=== PATIENT | female | born 1970 | race Two or more races ===

== ENCOUNTER 2019-10-10 16:16 | Inpatient (IN) | payer MEDICARE, OTHER ==
[~2019-10-10] VITALS: Ht 152.4 cm; Wt 76.2 kg
[2019-10-10] MEDS ORDERED: HALOPERIDOL LACTATE 5 MG/1 ML VIAL IM ONE (16:30)
[2019-10-10] MEDS ORDERED: LORAZEPAM 2 MG/1 ML VIAL IM ONE (16:30)
[2019-10-10] MEDS ORDERED: diphenhydrAMINE 50 MG/1 ML VIAL IM ONE (16:30)
[2019-10-10] MEDS ORDERED: LORAZEPAM 2 MG/1 ML VIAL ONE (16:33)
[2019-10-10] MEDS ORDERED: HALOPERIDOL LACTATE 5 MG/1 ML VIAL ONE (16:34)
[2019-10-10] MEDS ORDERED: diphenhydrAMINE 50 MG/1 ML VIAL ONE (16:34)
[2019-10-10 16:39] LABS: BASOPHILS # (AUTO) 0.1 K/uL (0.0-8.0); BASOPHILS % (AUTO) 1.1 % (0.0-2.0); EOSINOPHILS # (AUTO) 0.3 K/uL (0.0-0.7); EOSINOPHILS % (AUTO) 3.2 % (0.0-7.0); HEMATOCRIT 38.9 % (31.2-41.9); HEMOGLOBIN 12.7 g/dL (10.9-14.3); LYMPHOCYTES # (AUTO) 2.2 K/uL (20.0-40.0); LYMPHOCYTES % (AUTO) 27.1 % (20.5-51.5); MEAN CORPUSCULAR HGB CONC 33 g/dL (32.3-35.6); MEAN CORPUSCULAR VOLUME 85.8 fL (75.5-95.3); MONOCYTES # (AUTO) 0.9 K/uL (2.0-10.0); MONOCYTES % (AUTO) 10.7 % (0.0-11.0); NEUTROPHILS # (AUTO) 4.6 K/uL (1.8-8.9); NEUTROPHILS % (AUTO) 57.9 % (38.5-71.5); PLATELET COUNT (AUTO) 425 K/uL (179-408); RED BLOOD CELL COUNT(AUTO) 4.54 MIL/uL (3.63-4.92)
[2019-10-10] MEDS ORDERED: FLEXERIL (16:47)
[2019-10-10] MEDS ORDERED: AMOXICILLIN (16:47)
[2019-10-10] MEDS ORDERED: SERT50TA14 (16:47)
[2019-10-10 16:48] LABS: ACETAMINOPHEN < 2.0 ug/mL (10-30); ALANINE AMINOTRANSFERASE 23 U/L (14-59); ALKALINE PHOSPHATASE 126 U/L (50-136); ASPARTATE AMINOTRANSFERASE 23 U/L (15-37); BILIRUBIN,DIRECT 0.2 mg/dL (0.0-0.2); BILIRUBIN,TOTAL 0.7 mg/dL (0.2-1.0); CARBON DIOXIDE 24 mmol/L (21-32); CHLORIDE 101 mmol/L (98-107); CREATININE 0.9 mg/dL (0.6-1.3); GLUCOSE 154 mg/dL (74-106); POTASSIUM 3.3 mmol/L (3.5-5.1); TOTAL PROTEIN, SERUM 7.5 g/dL (6.4-8.2); UREA NITROGEN, BLOOD 16 mg/dL (7-18)
[2019-10-10 17:03] LABS: ETHANOL < 3 MG/DL (0-0)
--- NOTE | 2019-10-10 17:45 | NUR ---
Patient is resting comfortably on gurney with eyes closed, 1:1 sitter maintained.
[2019-10-10 17:50] LABS: *BILIRUBIN,URIN 1+ (NEGATIVE); *CLARITY,URINE SLIGHTLY CLOUDY (CLEAR); *COLOR,URINE YELLOW (YELLOW); *KETONES,URINE NEGATIVE (NEGATIVE); *UROBILINOGEN,URINE 0.2 E.U./dl (NORMAL); LEUKOCYTE ESTERASE ,URINE NEGATIVE (NEGATIVE); NITRITE, URINE NEGATIVE (NEGATIVE); UGLUCOSE NEGATIVE (NEGATIVE)
--- NOTE | 2019-10-10 17:52 | NUR ---
Mikey Dorantes.@bedside evaluating the patient.
[2019-10-10 18:04] LABS: *AMPHETAMINE, URINE NEGATIVE (NEGATIVE); *BARBITURATE, URINE NEGATIVE (NEGATIVE); *CANNABINOID, URINE NEGATIVE (NEGATIVE); *COCCAINE, URINE NEGATIVE (NEGATIVE); *OPIATE, URINE NEGATIVE (NEGATIVE); *PHENCYCLIDINE SCREEN,URINE NEGATIVE (NEGATIVE)
[2019-10-10 18:10] LABS: *BLOOD, URINE TRACE (NEGATIVE)
[2019-10-10 18:22] LABS: BACTERIA,URINE FEW /HPF (NONE SEEN); SQUAMOUS EPITHELIAL CELL,UR MODERATE /HPF (NONE SEEN); WBC,URINE 0-3 /HPF (0-3)
--- NOTE | 2019-10-10 19:10 | NUR ---
Patient is for transfer to MHU, pending accepting MHU nurse, endorsed to KELSEY Chester accordingly
--- NOTE | 2019-10-10 20:04 | NUR ---
Pt. admitted to MHU, under care of Aleyda. Diagnosis: Psychosis 5150 Hold/Gravely Disabled. Belongs List completed
[2019-10-10] MEDS ORDERED: MAG HYDROX/AL HYDROX/SIMETH 30 ML LIQUID UDC PO PRN (20:15)
[2019-10-10] MEDS ORDERED: BLOOD SUGAR DIAGNOSTIC 1 EACH STRIP VI ONE (20:15)
[2019-10-10] MEDS ORDERED: MAGNESIUM HYDROXIDE 30 ML LIQUID UDC PO PRN (20:15)
[2019-10-10] MEDS ORDERED: ACETAMINOPHEN 325 MG TABLET PO PRN (20:15)
[2019-10-10 20:35] VITALS: BP 105/63
[2019-10-10] MEDS ORDERED: POTASSIUM CHLORIDE 20 MEQ TAB.PRT.SR PO ONE (21:15)
[2019-10-10] MEDS ORDERED: CYCL5TAB PO (22:40)
[2019-10-10] MEDS ORDERED: SERT50TA PO (22:40)
[2019-10-10] MEDS ORDERED: AMOX-430 PO (22:40)
[2019-10-10] MEDS ORDERED: HYDR-4384 PO (22:40)
[2019-10-10] MEDS ORDERED: VITAMIN D3-50 PO (22:40)
--- NOTE | 2019-10-11 00:27 | NUR ---
GPS/NEW ADMIT ON 5150 HOLD. 49/YR OLD FEMALE FROM ER VIA WHEELCHAIR. ASSIGNED TO DR. DERDERIAN. GUILLORY. PT ADMITTED TO MHU FOR 72/HRS HOLD WHICH BEGINS AT 1800, 10/10/19 TO END AT 1800, 10/13/19. PT ADMITTING DX. PSYCHOSIS WITH GRAVELY DISABLED DUE TO UNABLE TO CARE FOR SELF. ADVISEMENT COMPLETED BUT PT UNABLE TO SIGN DUE TO SEDATION. INITIAL WELCOME PACKAGE GIVEN AND AT BEDSIDE. PT WAS TRANSFER TO ER VIA EMS AFTER [employer] WAS CALLED IN PER PT IN A DRUG STORE BANDING HER HEAD AND THROWING HER STUFFS. PT APPEARS WELL NOURISHED BUT UNKEPT. RESPONSIVE VERBALLY BUT CONFUSE AND VERY SEDATED. SKIN ASSESSMENT DONE WITH RIGHT BREAST BRUISE NOTED. INITIAL BLOOD SUGAR MONITOR DONE AND WAS 112/DL. PT WAS GIVEN POTASSIUM TAB DUE TO LOW K LEVEL FROM ER. Q 15MINS CHECK ONGOING AND WILL CONTINUE TO MONITOR.
--- NOTE | 2019-10-11 06:49 | NUR ---
CORRECTION / PT ASSIGNED DR. RASHID NOT RAFFIIAN.
[2019-10-11 07:30] VITALS: BP 130/61
[2019-10-11] MEDS ORDERED: POTASSIUM CHLORIDE 20 MEQ TAB.PRT.SR PO ONE (11:30)
[2019-10-11] MEDS: LORAZEPAM 0.5 MG TABLET PO PRN (11:55)
--- NOTE | 2019-10-11 12:14 | NUR ---
Social Work Initial Discharge Note: Patient currently resides at [address] [place] [address] with her friend Nils ([phone]). Per Nils, he stated that he is unsure if she is welcomed to her place upon discharge. Per Nils, stated that he will touch base with this card writer hand upon discharge if she is welcomed. Per Nils, he stated that this is not a permanent stay for patient. medicine worker will work with the patient and the MD regarding appropriate discharge planning. medicine worker will form a safe and proper discharge.
--- NOTE | 2019-10-11 12:14 | NUR ---
Social Work Family Contact: drop board worker contacted patient's friend Nils ([phone]) to gather collateral. Per Nils, he stated that patient resides with him and that she "visits" him. Per Nils, he stated that this is not a permanent stay for patient and that patient his homeless. This chart writer asked for Nils to confirm address and Nils stated "that he will not share the address with this chart writer". Per Nils, he stated he is indecisive if patient is welcomed back upon discharge.
[2019-10-11] MEDS: DIVALPROEX 250 MG TABLET.DR PO SCH ×2 (12:40→16:46)
--- NOTE | 2019-10-11 13:15 | NUR ---
Social Work Individual Therapy: Social Work Individual Therapy: industrial services worker met with patient for brief counseling to address patients paranoia. Patient presents irritable, tangential, and hyperverbal. Patient expressed that she is "angry" because she was not accepted to [employer] and that she feels that she is not good enough. industrial services worker actively listened and provided emotional support.
--- NOTE | 2019-10-11 14:30 | NUR ---
PATIENT IS ALERT, AWAKE, ORIENTED X3, VERBALLY RESPONSIVE, NO SOB,RESP EVEN NONLABORED,SKIN WARM AND DRY TO TOUCH, PATIENT NOTED MANIC, SPEAKING VERY LOUD, PRESSURED SPEECH, PACING FAST BACK AND FORTH IN THE HALLWAY, MEDS ADMINISTERED ORDERED, CONTINUE TO MONITOR FOR EFFECTIVENESS.
--- NOTE | 2019-10-11 14:30 | NUR ---
PATIENT REFUSED HER PICTURE TO BE TAKEN, PATIENT RIGHT OF REFUSE RESPECTED
[2019-10-11 16:38] VITALS: BP 109/73
--- NOTE | 2019-10-11 17:57 | NUR ---
meds noted with some effectiveness, still noted with fast pace, pressured speech, patient constantly commands patients her needs. no acute distress noted
[2019-10-11 20:20] VITALS: BP 128/86
--- NOTE | 2019-10-11 22:57 | NUR ---
GPS/ RECEIVED SITTING IN BED, PT ON AND OFF LOUD TALKING AND APPEARS FORGETFUL AND REPEAT SAME THING OVER AND OVER. RESTLESS AND WALKING FROM ROOM TO ACTIVITY ROOM AND NURSING STATION. PT WAS NOTED CRYING WHILE IN HER BED, WHEN INTERVIEWED, SHE WAS GOING ON AND ON WITH WHAT HAPPENED TO HER FORM [employer] BUT NOT MAKING SENSE. UNABLE TO REDIRECT OR REORIENT TO REALITY. OFFERED MEDICATION TO HELP HER CALM BUT REFUSED. PT IS VERY MANIC AND WONDERING IN UNIT AT THIS TIME. WILL CONTINUE TO MONITOR.
--- NOTE | 2019-10-12 06:47 | NUR ---
PT SLEPT 5.45HRS WITH ABOUT 2-3 EPISODE OF CONFUSE WALKING ON THE HALLWAY AND HYPER PRESSURE SPEECH LOOKING FOR HER CELL PHONE. PT WAS REDIRECTED AND WAS EFFECTIVE.
[2019-10-12 07:30] VITALS: BP 118/74
[2019-10-12] MEDS: FAMOTIDINE 20 MG TABLET PO SCH (08:30)
[2019-10-12] MEDS: DIVALPROEX 250 MG TABLET.DR PO SCH ×2 (08:30→13:33)
[2019-10-12] MEDS ORDERED: SERTRALINE HCL 50 MG TABLET PO SCH (09:00)
[2019-10-12] MEDS: LORAZEPAM 0.5 MG TABLET PO PRN (11:41)
[2019-10-12 16:00] VITALS: BP 123/71
[2019-10-12] MEDS ORDERED: DIVALPROEX SPRINKLE 125 MG CAP.SPRINK PO SCH (17:00)
[2019-10-12] MEDS: DIVALPROEX 500 MG TABLET.DR PO SCH (18:05)
[2019-10-12 20:28] VITALS: BP 118/64
[2019-10-12] MEDS: TEMAZEPAM 7.5 MG CAPSULE PO PRN (22:19)
--- NOTE | 2019-10-13 02:06 | NUR ---
PATIENT RECEIVED PACING THE [address], INTRUSIVE, EASILY IRRITABLE, AND AGITATED. PATIENT IS AMBULATORY. PATIENT REQUIRES CONSTANT REDIRECTION.
[2019-10-13 07:30] VITALS: BP 125/84
[2019-10-13] MEDS: DIVALPROEX 250 MG TABLET.DR PO SCH ×2 (08:54→12:19)
[2019-10-13] MEDS: FAMOTIDINE 20 MG TABLET PO SCH (08:54)
[2019-10-13] MEDS: BENZTROPINE MESYLATE 0.5 MG TABLET PO SCH ×2 (09:44→20:13)
[2019-10-13] MEDS: risperiDONE 0.5 MG TABLET PO SCH ×2 (09:44→20:13)
[2019-10-13] MEDS: LORAZEPAM 0.5 MG TABLET PO PRN ×2 (09:45→14:06)
--- NOTE | 2019-10-13 10:30 | NUR ---
MANNIE Discharge Planning: MANNIE scheduled patient's aftercare appointments with her doctors for outpatient follow up upon discharge. Patient will follow up with her primary physician Dr. Rashaun Merino [address], [place] [address] ([phone]) on Thursday October 24, 2019 at 11:30am via telephone. Patient will follow up with her psychiatrist Dr. Montes [address], [address] [place] [address] ([phone]). Attempted to call and unable to reach, voicemail box full. Will call again.
--- NOTE | 2019-10-13 10:40 | NUR ---
Social Work Firearms Report ([employer]): Addiction Specialist completed and submitted a [employer] firearms report for 5150 grave disability certification. A copy of report has been placed in patient chart.
[2019-10-13 16:00] VITALS: BP 112/73
--- NOTE | 2019-10-13 16:22 | NUR ---
Social Work Individual Therapy: fitness worker met with patient for brief counseling to address patients paranoia. Patient presents irritable and has been tearful. Patient is continuously cry and stated that she wants to leave and that "we are keeping her from going back home". Patient is fixated on leaving the hospital and is unable to conversate with this display card writer. fitness worker comforted patient while she was crying, but patient continues to cry and states that "she is unable to hold her emotions". This display card writer will follow-up with patient.
[2019-10-13] MEDS: DIVALPROEX 500 MG TABLET.DR PO SCH (16:53)
--- NOTE | 2019-10-13 17:45 | NUR ---
Gps/Tack Puller Machine- Patient was able to take a nap for 1 hour this pm. Has episodes of crying spells this pm, ativan 0.5 mg given po, was able to relaxed after. Tends to get hyperverbal ,intrusive , gets needy and argumentative ,constantly asking for something., patient got calmer towards the afternoon .Encouraged to eat in the dinning room. Interacting with some some selected peers.
[2019-10-13 20:13] VITALS: BP 113/71
--- NOTE | 2019-10-13 21:20 | NUR ---
GPS/ RECEIVED PT IN BED ASLEEP, RESPOND TO LIGHT TOUCH. PT AWAKE AND BECAME VERY LOUD WITH FREQUENTLY STOPS AT NURSING STATION ASKING FOR COMPUTER TO LOOK UP SOMETHING. NOT REDIRECTABLE DUE TO DISEASE PROCESS. PT THINKING IS VERY DISORGANIZED, EXPRESSING HERSELF BRING VERY SICK AND WANTED TO GO AND SEE THE DOCTOR FOR PHYSICAL THERAPY. PT IS REQUESTING A PT THERAPY. SHE WAS NOTED CRYING ON AND OFF. COOPERATIVE WITH ROUTINE MEDICATIONS. WILL MONITOR.
--- NOTE | 2019-10-14 06:30 | NUR ---
5.30 TOTAL HOURS SLEPT DURING, EPISODE OF AWAKE AND WALK IN THE HALLWAYS.
[2019-10-14] MEDS: FAMOTIDINE 20 MG TABLET PO SCH (08:20)
[2019-10-14] MEDS: risperiDONE 0.5 MG TABLET PO SCH (08:20)
[2019-10-14] MEDS: DIVALPROEX 250 MG TABLET.DR PO SCH ×2 (08:20→12:28)
[2019-10-14] MEDS: BENZTROPINE MESYLATE 0.5 MG TABLET PO SCH ×2 (08:20→20:27)
[2019-10-14 10:14] VITALS: BP 118/71
[2019-10-14] MEDS: LORAZEPAM 0.5 MG TABLET PO PRN ×2 (10:22→18:14)
[2019-10-14] MEDS: risperiDONE 1 MG TABLET PO SCH (12:28)
--- NOTE | 2019-10-14 12:58 | NUR ---
Gps/Billing And Quality Technician-, Stayed in her room during her lunch . Continued compliance with her meds. Patient was given limit setting, pt. kept asking to use the phone, to call her friends, requested to open her belonging bag to get some phone # she needed. Gets argumentative at time, was able to redirect
[2019-10-14] MEDS ORDERED: risperiDONE 1 MG/ML UDC PO SCH (13:00)
[2019-10-14 15:13] VITALS: BP 102/72
--- NOTE | 2019-10-14 15:31 | NUR ---
Social Work Individual Therapy Note: log pond worker met with patient for brief counseling and assessed for being combative and aggressive. Patient presented tearful and was emotional. Patient stated that she is upset because she is unable to use her computer to check her application on [facility]. This typewriter ribbon winder informed that she may use a phone to contact [facility] to find out her results. log pond worker actively listened and provided emotional support.
[2019-10-14] MEDS: DIVALPROEX 500 MG TABLET.DR PO SCH (16:44)
[2019-10-14 20:07] VITALS: BP 107/72
[2019-10-14] MEDS: risperiDONE 2 MG TABLET PO SCH (20:27)
[2019-10-14] MEDS ORDERED: risperiDONE 0.5 MG TABLET PO SCH (21:00)
[2019-10-15 07:30] VITALS: BP 101/56
[2019-10-15] MEDS: BENZTROPINE MESYLATE 0.5 MG TABLET PO SCH ×2 (08:19→20:17)
[2019-10-15] MEDS: DIVALPROEX 250 MG TABLET.DR PO SCH ×2 (08:19→12:14)
[2019-10-15] MEDS: FAMOTIDINE 20 MG TABLET PO SCH (08:19)
[2019-10-15] MEDS: risperiDONE 1 MG TABLET PO SCH ×2 (08:19→12:14)
[2019-10-15 08:38] LABS: BASOPHILS % (AUTO) 0.8 % (0.0-2.0); EOSINOPHILS # (AUTO) 0.3 K/uL (0.0-0.7); EOSINOPHILS % (AUTO) 4.7 % (0.0-7.0); HEMATOCRIT 39.1 % (31.2-41.9); LYMPHOCYTES # (AUTO) 1.3 K/uL (20.0-40.0); LYMPHOCYTES % (AUTO) 23.3 % (20.5-51.5); MEAN CORPUSCULAR HEMOGLOBIN 28.7 uug (24.7-32.8); MEAN CORPUSCULAR HGB CONC 33 g/dL (32.3-35.6); MEAN CORPUSCULAR VOLUME 86.3 fL (75.5-95.3); MONOCYTES # (AUTO) 0.7 K/uL (2.0-10.0); MONOCYTES % (AUTO) 11.7 % (0.0-11.0); NEUTROPHILS # (AUTO) 3.3 K/uL (1.8-8.9); NEUTROPHILS % (AUTO) 59.5 % (38.5-71.5); PLATELET COUNT (AUTO) 337 K/uL (179-408); RED BLOOD CELL COUNT(AUTO) 4.54 MIL/uL (3.63-4.92); WHITE BLOOD COUNT (AUTO) 5.6 K/uL (3.8-11.8)
[2019-10-15 09:05] LABS: BILIRUBIN,TOTAL 0.3 mg/dL (0.2-1.0); CREATININE 0.7 mg/dL (0.6-1.3); POTASSIUM 4.7 mmol/L (3.5-5.1)
[2019-10-15] MEDS: LORAZEPAM 0.5 MG TABLET PO PRN ×2 (10:31→19:41)
--- NOTE | 2019-10-15 10:33 | NUR ---
RECEIVED PATIENT AOX3, PATIENT MANIC , HYPERVERBAL, VERBALLY ABUSIVE AND THREATENING STAFF, PATIENT RESTLESS AND ALWAYS PREOCCUPIED IN USING PHONE, NEEDS REDIRECTION AND SETTING LIMITS, PRN MEDS GIVEN AT THIS TIME, PATIENT WANTED TO USE PHONE EVERY 5MINUTES , WILL CONTINUE MONITOR
[2019-10-15 15:44] VITALS: BP 130/87
[2019-10-15] MEDS: DIVALPROEX 500 MG TABLET.DR PO SCH (16:07)
--- NOTE | 2019-10-15 17:40 | NUR ---
patient calm at this time, manic intrusive and needed to redirect, patient needed to set boundaries and limitation, patient denies any SI and HI, will continue monitor
--- NOTE | 2019-10-15 20:00 | NUR ---
RECEIVED PATIENT IN THE HALLWAY, SHE IS NOTED A/O X 2. SHE IS ABLE TO AMBULATE WITH STEADY GAIT AND ABLE TO MAKE HER NEEDS KNOWN. PATIENT NOTED HYPERVERBAL, INTRUSIVE, ATTENTION SEEKER, FIXED ON USING THE PHONE AND ANXIOUS. ATIVAN 0.5 MG PO PRN WAS GIVEN. PATIENT IS REDIRECTED AND SHE IS REASSURED FOR HER SAFETY. SHE DENIES SI//AH/VH. SAFETY AND FALL PRECAUTION IN PLACE. V/S STABLE. WILL CONTINUE TO MONITOR.
[2019-10-15] MEDS: risperiDONE 2 MG TABLET PO SCH (20:16)
[2019-10-15 20:28] VITALS: BP 121/80
--- NOTE | 2019-10-16 06:04 | NUR ---
Patient slept for approx. 7 hrs through the night. patient noted less irritable. Able to be redirected. will continue to monitor.
[2019-10-16 07:30] VITALS: BP 98/50
[2019-10-16] MEDS: DIVALPROEX 250 MG TABLET.DR PO SCH ×2 (07:40→12:03)
[2019-10-16] MEDS: risperiDONE 1 MG TABLET PO SCH ×2 (07:40→12:03)
[2019-10-16] MEDS: BENZTROPINE MESYLATE 0.5 MG TABLET PO SCH ×2 (08:04→20:16)
[2019-10-16] MEDS: FAMOTIDINE 20 MG TABLET PO SCH (08:04)
--- NOTE | 2019-10-16 08:20 | NUR ---
GPS: received patient AOx3, sitting in the dining room , compliant with medication, patient is alittle intrusive follows redirection, patient compliant with medication
[2019-10-16 16:12] VITALS: BP 126/85
[2019-10-16] MEDS: DIVALPROEX 500 MG TABLET.DR PO SCH (16:15)
--- NOTE | 2019-10-16 17:43 | NUR ---
patients continues to be manic, grandiose, hyperverbal however redirectable, needed to set limits with her behavior towards staff and other patient, patient compliant with medication , denies SI and HI at this time
[2019-10-16 20:03] VITALS: BP 139/87
[2019-10-16] MEDS: risperiDONE 2 MG TABLET PO SCH (20:16)
[2019-10-17] MEDS: TEMAZEPAM 7.5 MG CAPSULE PO PRN ×2 (00:15→23:44)
--- NOTE | 2019-10-17 06:22 | NUR ---
GPS: Pt.slept for 4.30 last night despite taking Restoril 7.5mg a little after midnight. Now awake,remains hyper-verbal,manic but manageable. Safety emphasized. Will continue to re-direct prn.
[2019-10-17 07:30] VITALS: BP 131/80
[2019-10-17] MEDS: BENZTROPINE MESYLATE 0.5 MG TABLET PO SCH ×2 (08:35→20:36)
[2019-10-17] MEDS: DIVALPROEX 250 MG TABLET.DR PO SCH ×2 (08:35→12:12)
[2019-10-17] MEDS: risperiDONE 1 MG TABLET PO SCH ×2 (08:35→12:13)
[2019-10-17] MEDS: FAMOTIDINE 20 MG TABLET PO SCH (08:35)
--- NOTE | 2019-10-17 10:59 | NUR ---
Social Work Family Contact: culture room worker spoke with patient's friend Nils ([phone]) who she lives with stated that she is welcomed back upon discharge and will provided transportation for the patient.
--- NOTE | 2019-10-17 12:23 | NUR ---
GPS:patient AOx3 patient Addendum: 10/17/19 at 1225 by ELLIOTT CACERES RN patient manic verbally abusive, patient needed to set limit, patient took he medication, redirectable
--- NOTE | 2019-10-17 12:57 | NUR ---
Social Work Individual Therapy Note: nursing home social worker met with patient for brief counseling and assessed for being combative and aggressive. Patient presented anxious. Patient wanted this display card writer to help navigate the computer to print acceptance letters from colleges that she applied at. This display card writer helped patient print and gave list of numbers. This display card writer actively listened and provided support.
[2019-10-17 15:07] VITALS: BP 139/94
[2019-10-17] MEDS: DIVALPROEX 500 MG TABLET.DR PO SCH (16:43)
[2019-10-17 20:26] VITALS: BP 126/85
[2019-10-17] MEDS: risperiDONE 2 MG TABLET PO SCH (20:37)
--- NOTE | 2019-10-18 06:15 | NUR ---
GPS: Pt.slept for 5.30 last night. Remains hyperverbal,manic but re-directable. Limit setting provided by staff prn. Safe environment provided. Will continue to re-direct prn.
[2019-10-18 07:30] VITALS: BP 128/79
[2019-10-18] MEDS: DIVALPROEX 250 MG TABLET.DR PO SCH ×2 (08:00→13:00)
[2019-10-18] MEDS: risperiDONE 2 MG TABLET PO SCH ×2 (08:00→20:01)
[2019-10-18] MEDS ORDERED: risperiDONE 1 MG TABLET PO SCH (08:00)
[2019-10-18] MEDS: BENZTROPINE MESYLATE 0.5 MG TABLET PO SCH ×2 (09:03→20:01)
[2019-10-18] MEDS: FAMOTIDINE 20 MG TABLET PO SCH (09:04)
--- NOTE | 2019-10-18 09:46 | NUR ---
pt in dayroom aox3 no s/s of acute distress. paronoid about taking medications will cont to monitor
[2019-10-18 16:00] VITALS: BP 112/78
[2019-10-18] MEDS: DIVALPROEX 500 MG TABLET.DR PO SCH (16:01)
--- NOTE | 2019-10-18 17:50 | NUR ---
PT SHOWS NO S/S OF ACUTE DISTRESS UNEVENTFUL SHIFT.
--- NOTE | 2019-10-18 20:00 | NUR ---
RECEIVED PATIENT IN THE HALLWAY, SHE IS NOTED A/O X 3, HYPERVERBAL, ATTENTION SEEKER. HOWEVER, SHE IS NOTED LESS IRRITABLE, LESS DEMANDING. PATIENT IS FIXED ON GOING HOME TOMORROW. PATIENT IS REASSURED AND REDIRECTED. SHE IS REASSURED FOR HER SAFETY. SAFETY AND FALL PRECAUTION IN PLACE. V/S STABLE AT THIS TIME. WILL CONTINUE TO MONITOR.
[2019-10-18 20:12] VITALS: BP 115/69
[2019-10-19 07:30] VITALS: BP 101/54
[2019-10-19] MEDS: FAMOTIDINE 20 MG TABLET PO SCH (08:17)
[2019-10-19] MEDS: BENZTROPINE MESYLATE 0.5 MG TABLET PO SCH (08:17)
[2019-10-19] MEDS: DIVALPROEX 250 MG TABLET.DR PO SCH ×2 (08:17→13:10)
[2019-10-19] MEDS: risperiDONE 2 MG TABLET PO SCH (08:17)
--- NOTE | 2019-10-19 08:57 | NUR ---
Social Work Discharge Note: Patient will be discharged back home to [address] [place] [address]; ([phone]). Patients friend Nils ([phone]) who will provide transportation at 1PM. Per patients friend Nils ([phone]) who is aware and agreeable. Patient is aware and agreeable with discharge plan. Patient denies suicidal or homicidal ideation. Patient presents with appropriate mood and congruent affect. Patient will follow up with her (primary physician) Dr. Merino [address], [place] [address] ([phone]) on Thursday October 24, 2019 at 11:30am via telephone. Patient will follow up with her (psychiatrist) Dr. Montes at [address], [address] [place] [address] ([phone]) October 27, 2019 at 3pm via telephone. SW provided patient with a copy of the [facility] homeless directory which provides information on locations for hot meals, sack lunches, food pantries, and showers. SW provided a list of mental health clinics: [facility] [address] [place] [address], ; [facility] [address] [place] [address], ; [facility] [address] [place] [address], ([phone]); a list of medical clinics: [facility] [address], [place]. [place], ; [facility] [address], [address], [facility] [address]; [facility] [address] [facility] [address], ([phone]); and a list of substance abuse programs: [facility] Substance Abuse Self-helpline ([phone]); [facility] ([phone]); [facility] ([phone]); [facility] ([phone]); [facility] ([phone]); [facility] ([phone]); [facility] ([phone]). Patient signed the homeless waiver upon discharge and copy was placed in the chart.
--- NOTE | 2019-10-19 14:30 | NUR ---
1100 Discharged instructions given to patient regarding medications to continue at home, prescription given w/ instruction to be filled it to her pharmacy- patient verbalized understanding. All valuables and belongings returned and signed by patient. 1430 Patient picked up by uber arranged by family, patient condition stable, denies SI/ HI. No delusion . No a/v hallucination noted.
== END 2019-10-19 14:30 | disposition home or self-care (01) | DRG 885 ==
LOC: ER 16:18 → GPS 19:55
PROVIDERS: ADMIT Psychiatry & Neurology Psychosomatic Medicine; ATTEND Internal Medicine
DX: F31.30 Bipolar disorder, current episode depressed, mild or moderate severity, unspecified (principal); E44.1 Mild protein-calorie malnutrition; F23 Brief psychotic disorder; E87.6 Hypokalemia; E66.9 Obesity, unspecified; G89.4 Chronic pain syndrome; F41.9 Anxiety disorder, unspecified; Z68.32 Body mass index [BMI] 32.0-32.9, adult; Z79.891 Long term (current) use of opiate analgesic; E88.09 Other disorders of plasma-protein metabolism, not elsewhere classified; F25.9 Schizoaffective disorder, unspecified
CPT/HCPCS: 36415; 51702; 80164; 80307; 80329; 84132; 85025; A4663; C1758; G0480; G0480-TC; J1200; J1630; J2060; J3490